=== PATIENT | female | born 2000 | race Caucasian/White ===

== ENCOUNTER 2023-02-09 00:45 | Inpatient (IN) | payer BC ==
[2023-02-09 01:33] LABS: HEMATOCRIT 38.7 % (37.0-47.0); HEMOGLOBIN 13.1 g/dL (12.0-16.0); MEAN CORPUSCULAR HEMOGLOBIN 28.2 pg (27.0-34.0); MEAN CORPUSCULAR HGB CONC 33.9 g/dL (33.0-35.0); MEAN CORPUSCULAR VOLUME 83.2 fL (80-100); RED BLOOD CELL COUNT 4.65 10^6/uL (4.2-5.4); WHITE BLOOD CELL COUNT,WBC 11.7 10^3/uL (5.0-10.0)
[2023-02-09 01:35] LABS: APPEARANCE,URINE CLEAR (CLEAR); BILIRUBIN,URINE NEGATIVE (NEGATIVE); COLOR,URINE YELLOW (YELLOW); GLUCOSE,URINE NEGATIVE (NEGATIVE); KETONES,URINE NEGATIVE (NEGATIVE); LEUKOCYTE ESTERASE,URINE NEGATIVE (NEGATIVE); NITRITE,URINE NEGATIVE (NEGATIVE); OCCULT BLOOD,URINE LARGE (NEGATIVE); PROTEIN,URINE NEGATIVE (NEGATIVE); UROBILINOGEN,URINE 0.2 mg/dL (0.2-1.0)
[2023-02-09 01:46] LABS: CREATININE,URINE RAND 13.18 mg/dL (No establ ref range); PROTEIN CREATININE RATIO,URINE 493.2 mg/g (<150.0); PROTEIN,URINE RANDOM 6.5 mg/dL (0.0-11.9)
[2023-02-09 01:50] LABS: ALANINE AMINOTRANSFERASE,ALT 18 U/L (14-59); ASPARTATE AMNIOTRANSFERASE,AST 13 U/L (15-37); BLOOD UREA NITROGEN,BUN 10 mg/dL (7-18); CREATININE 0.64 mg/dL (0.55-1.02); URIC ACID 4.5 mg/dL (2.6-6.0)
[2023-02-09 02:01] LABS: ESTIMATED GFR 130 mL/min (>=60); LACTATE DEHYDROGENASE,LDH 213 U/L (81-234)
[2023-02-09] MEDS ORDERED: Carboprost Tromethamine 250 MCG/1 ML Amp IM PRN (02:09)
[2023-02-09] MEDS ORDERED: Sodium Chloride 0.9% 10 ML Syringe FLUSH PRN (02:09)
[2023-02-09] MEDS ORDERED: Tranexamic Acid 1,000 MG in Sodium Chloride 0.9% 100 ML IV PRN (02:09)
[2023-02-09] MEDS ORDERED: Lidocaine 1% 30 ML SDV INJECT PRN (02:09)
[2023-02-09] MEDS ORDERED: Ondansetron 4 MG/2 ML SDV IVPUSH PRN (02:09)
[2023-02-09] MEDS ORDERED: Misoprostol 400 MCG (4 X 100 MCG TAB) RECTAL PRN (02:09)
[2023-02-09] MEDS ORDERED: Acetaminophen 325 MG Tab PO PRN ×3 (02:09→19:51)
[2023-02-09] MEDS ORDERED: Methylergonovine 0.2 MG/1 ML Amp IM PRN (02:09)
[2023-02-09] MEDS ORDERED: Lactated Ringers 1,000 ML IV SCH (02:15)
[2023-02-09] MEDS ORDERED: Oxytocin/Normal Saline 30 UNIT/500 ML BAG IV SCH ×3 (02:15)
[2023-02-09] MEDS: Lactated Ringers 1,000 ML IV SCH ×2 (02:28→15:30)
[2023-02-09] MEDS: Lactated Ringers 1,000 ML IV ONE ×2 (09:10→15:30)
[2023-02-09] MEDS ORDERED: Phenylephrine 1% 10 MG/ML SDV IVPUSH PRN (12:01)
[2023-02-09] MEDS ORDERED: ePHEDrine 50 MG/ML SDV IVPUSH PRN (12:01)
[2023-02-09] MEDS ORDERED: Ropivacaine 200 MG in Premix Bag 1 BAG EPIDUR SCH (12:15)
[2023-02-09] MEDS ORDERED: Simethicone 80 MG Tab.Chew PO PRN (19:51)
[2023-02-09] MEDS ORDERED: Benzocaine/Menthol 20%-0.5% Spray 78 GM Cannister TOP PRN (19:51)
[2023-02-09] MEDS ORDERED: Oxytocin 10 Units/1 ML SDV IM PRN (19:51)
[2023-02-09] MEDS ORDERED: Docusate Sodium 100 MG Cap PO PRN (19:51)
[2023-02-09] MEDS ORDERED: Ibuprofen 800 MG Tab PO PRN (19:51)
[2023-02-09] MEDS ORDERED: hydrOXYzine HCl 25 MG Tab PO PRN (19:52)
[2023-02-09] MEDS ORDERED: Witch Hazel Medicated Pads 100/Jar TOP PRN (23:18)
[2023-02-10] MEDS: Sodium Chloride 0.9% 10 ML Syringe FLUSH SCH ×2 (04:01→08:14)
[2023-02-10 06:27] LABS: HEMATOCRIT 36.9 % (37.0-47.0); HEMOGLOBIN 12.2 g/dL (12.0-16.0); MEAN CORPUSCULAR HEMOGLOBIN 27.7 pg (27.0-34.0); MEAN CORPUSCULAR HGB CONC 33.1 g/dL (33.0-35.0); MEAN CORPUSCULAR VOLUME 83.9 fL (80-100); RED BLOOD CELL COUNT 4.4 10^6/uL (4.2-5.4); WHITE BLOOD CELL COUNT,WBC 13.7 10^3/uL (5.0-10.0)
[2023-02-10 07:30] VITALS: BP 135/90; PULSE 100
[2023-02-10] MEDS ORDERED: Prenatal Multivitamin with Calcium/Folic Acid/Iron Tab PO SCH (09:00)
== END 2023-02-10 08:46 | disposition home or self-care (01) | DRG 560 ==
LOC: DL.OBCHECK 00:45 → DL.OB 01:03 → OBSVTOIN 14:38 → DL.OB 14:38
PROVIDERS: ADMIT Family Medicine; ATTEND Family Medicine
PROC: 0KQM0ZZ Repair Perineum Muscle, Open Approach (ICD-10-PCS; principal; 2023-02-09)
PROC: 00HU33Z Insertion of Infusion Device into Spinal Canal, Percutaneous Approach (ICD-10-PCS; principal; 2023-02-09)
PROC: 10E0XZZ Delivery of Products of Conception, External Approach (ICD-10-PCS; principal; 2023-02-09)
PROC: 0UQMXZZ Repair Vulva, External Approach (ICD-10-PCS; principal; 2023-02-09)
PROC: 3E0R3BZ Introduction of Anesthetic Agent into Spinal Canal, Percutaneous Approach (ICD-10-PCS; principal; 2023-02-09)
DX: O14.04 Mild to moderate pre-eclampsia, complicating childbirth (principal); O70.1 Second degree perineal laceration during delivery; O71.82 Other specified trauma to perineum and vulva; O42.013 Preterm premature rupture of membranes, onset of labor within 24 hours of rupture, third trimester; Z37.0 Single live birth; Z3A.36 36 weeks gestation of pregnancy
CPT/HCPCS: 01960; 01996; 36415; 51702; 59409; 81003; 82565; 82570; 83615; 84156; 84450; 84460; 84520; 84550; 85027; A9270-GY; J2405; J2590; J2795; J3490; J7120

== ENCOUNTER 2024-08-10 01:18 | Emergency (ER) | payer BC ==
[2024-08-10 02:28] LABS: APPEARANCE,URINE CLOUDY (CLEAR); BILIRUBIN,URINE SMALL (NEGATIVE); COLOR,URINE YELLOW (YELLOW); GLUCOSE,URINE NEGATIVE (NEGATIVE); KETONES,URINE 40 (NEGATIVE); LEUKOCYTE ESTERASE,URINE NEGATIVE (NEGATIVE); NITRITE,URINE NEGATIVE (NEGATIVE); OCCULT BLOOD,URINE LARGE (NEGATIVE); PROTEIN,URINE 30 (NEGATIVE); UROBILINOGEN,URINE 0.2 mg/dL (0.2-1.0)
[2024-08-10 02:35] LABS: AMORPHOUS SEDIMENT,URINE FEW /HPF (NOT SEEN); BACTERIA,URINE FEW /HPF (0-FEW/HPF); EPITHELIAL CELLS,URINE MANY /HPF (NOT SEEN); MUCUS,URINE MODERATE /LPF (NOT SEEN); RBC,URINE SEMI-PACKED /HPF (0-5); WBC,URINE 0-5 /HPF (0-5/HPF)
[2024-08-10] MEDS: Take Home: Ondansetron 4 MG Tab.DIS, 5 Tab Pack PO ONE (03:06)
[2024-08-10] MEDS: Take Home: Acetaminophen/HYDROcodone 325-5 MG, 5 Tab Pack PO ONE (03:06)
== END 2024-08-10 03:12 | disposition home or self-care (01) ==
LOC: DL.ED 01:18
DX: O99.891 Other specified diseases and conditions complicating pregnancy (principal); N23 Unspecified renal colic; Z79.899 Other long term (current) drug therapy; Z3A.14 14 weeks gestation of pregnancy
CPT/HCPCS: 76815; 81001; 99284; A9270; Q0162